=== PATIENT | female | born 1995 | race African-American/Black ===

== ENCOUNTER 2016-09-01 13:58 | Emergency (ER) ==
[2016-09-01 14:12] VITALS: BP 132/75
[2016-09-01 14:24] LABS: URINE CULTURE PL NEEDED? NO; URINE SOURCE CLEAN CATCH
[2016-09-01 14:30] LABS: BILIRUBIN URINE NEGATIVE (NEGATIVE); BLOOD URINE NEGATIVE (NEGATIVE); CLARITY CLEAR (CLEAR); COLOR YELLOW; GLUCOSE URINE NEGATIVE (NEGATIVE); LEUKOCYTES URINE 1+ (NEGATIVE); NITRITE URINE NEGATIVE (NEGATIVE); PROTEIN URINE 1+(30 mg/dL) mg/dL (NEGATIVE); UROBILINOGEN URINE 1+(1 mg/dL)
[2016-09-01 14:43] LABS: URINE EPITHELIAL CELLS <10 /HPF (<10); URINE RBC <10 /HPF (<10)
[2016-09-01 15:51] LABS: MANUAL DIFF NEEDED? NO
--- NOTE | 2016-09-01 15:56 | PROVIDER DOCUMENTATION ---
HPI-Female /OB/Breast - General Chief Complaint: Flank Pain Stated Complaint: FLANK PAIN Time Seen by Provider: 09/01/16 15:44 Source: reports: patient Allergies/Adverse Reactions: Patient Allergies Allergy/AdvReac Type Severity Reaction Status Date / Time Penicillins Allergy Severe SWELLING Verified 03/18/16 18:10 Home Medications: Home Medication List Medication Instructions Recorded Confirmed Last Taken Type No Home Medications 03/18/16 03/18/16 Unknown History - History of Present Illness-Female /OB Nature of Presenting Problem: 20 yo AAF presents to ED with cc of R flank and abdominal pain. Pt has hx of kidney stones and says this feels comparable to kidney stone episodes. Pt denies any surgical intervention in the past for kidney stones. Pt denies fever and vomiting. Pt denies any toxic habits. Upon arrival to ED, pt is mildly distressed and appears nontoxic. Location of complaint: reports: right flank Radiation: reports: RLQ Severity in ED: reports: moderate, severe Onset/Duration: reports: last night Timing: reports: still present Context/Activities at Onset: reports: none Vaginal Symptoms: reports: no symptoms Vaginal Bleeding Amount: None Urinary Symptoms: reports: no symptoms Associated Symptoms: denies: vomiting Review of Systems - Adult - REVIEW OF SYSTEMS - ADULT Constitutional: reports: no symptoms reported. denies: chills, fever Eyes: reports: no symptoms reported. denies: blurred vision, double vision Ears, Nose, Mouth & Throat: reports: no symptoms reported. denies: ear pain, nose pain Cardiovascular: reports: no symptoms reported. denies: chest pain, palpitations Respiratory: reports: no symptoms reported. denies: cough, wheezing Gastrointestinal: reports: abdominal pain (R side, to flank) Genitourinary: reports: flank pain (R side) Musculoskeletal: reports: no symptoms reported. denies: back pain, muscle aches Integumentary: reports: no symptoms reported. denies: mole changes, nail changes Neurological: reports: no symptoms reported. denies: ataxia, loss of balance Psychiatric: reports: no symptoms reported. denies: anxiety, alcohol/drug dependence Endocrine: reports: no symptoms reported. denies: cold intolerance, heat intolerance Hematologic/Lymphatic: reports: no symptoms reported. denies: blood clots, low blood count Allergic/Immunologic: reports: no symptoms reported. denies: allergic reactions , eczema All Other Systems: Reviewed and Negative Past History - Adult - PAST MEDICAL HISTORY-ADULT Review of Records: reports: Old Records Reviewed, Nursing Assessment Review, Medications Reviewed Major Childhood Illnesses: reports: denies history Cardiovascular: reports: denies history Respiratory: reports: denies history Gastrointestinal: reports: denies history Obstetrical/Gynecological: reports: PID/STD Genitourinary: reports: denies history Musculoskeletal: reports: denies history Neurological: reports: denies history Endocrine/Immune: reports: denies history Other Conditions: reports: denies history - PRIOR SURGERIES/PROCEDURES Surgical/Procedure History: reports: tonsillectomy - PRIOR HOSPITALIZATIONS Prior Hospitalizations: reports: none - IMMUNIZATION STATUS Childhood Immunizations: See Nurse Assessment Flu Vaccine: See Nurse Assessment - FAMILY HISTORY Family History: reviewed, not pertinent Physical Exam-General - PHYSICAL EXAM-ADULT Initial Vital Signs Reviewed: Yes - CONSTITUTIONAL General Appearance: alert, mild distress - EYES Eyes: PERRL/EOMI, pink conjunctivae - HEAD, EARS, NOSE, MOUTH & THROAT HENMT: normocephalic/atraumatic, moist mucous membranes - NECK Neck: non-tender, full range of motion, supple - RESPIRATORY Respiratory: chest non-tender, lungs clear, normal breath sounds - CARDIOVASCULAR Cardiovascular: normal peripheral pulses, regular rate, rhythm - GASTROINTESTINAL (ABDOMEN) Abdominal Exam: tenderness (R side, abdomen to flank) - LYMPHATIC Lymphatic: no adenopathy - MUSCULOSKELETAL Back Exam: normal inspection, no vertebral tenderness Extremity: normal range of motion, non-tender, normal gait - SKIN Integumentary: normal color, normal turgor, warm/dry - NEUROLOGIC Neurologic: grossly normal, no motor/sensory deficits - PSYCHIATRIC Psych/Mental Status: normal mood/affect, normal thought content, normal thought process, oriented x 3 Progress - CT/MRI 1 CT Study: Renal Stone Impression: Abnormal (No evidence of hydronephrosis, nephrolithiasis, ureterolithiasis. Evidence for cholelithiasis.) CT Results: Cholelithiasis (per Dr. Montenegro, radiology) Departure - Departure Disposition: HOME 01 Condition: Stable Additional Instructions: Follow up with Urology as instructed. Return to ER if your symptoms worsen. Referrals: Ajit Alejandro MD [Primary Care Provider] - Attestation - Scribe Verification/Attestation Scribe:: Roberta Kennedy Acting as Scribe for:: Zakia Domínguez Scribe documention review:: This chart was documented by a scribe and accurately reflects the service the provider performed and the decisions made by the provider. - Physician/ WARNER Attestation Patient care was provided by Advanced Practice Provider:: No
[2016-09-01 16:00] LABS: BASO% 0.2 % (0.0-0.8); EOS# 0.06 X1000 (0.0-0.7); EOS% 0.7 % (0.0-10.0); HEMATOCRIT 34.6 % (37.0-47.0); IMM GRAN# 0.01 X1000 (0.0-0.04); IMM GRAN% 0.1 % (0.0-0.5); LYMPH# 1.28 X1000 (1.2-3.4); LYMPH% 15.4 % (20.5-51.1); MCH 24.7 PG (27-31); MCHC 31.8 g/dL (33-37); MCV 77.6 FL (81-99); MONO# 0.46 X1000 (0.11-0.59); MONO% 5.5 % (1.7-9.3); MPV 10.1 FL (7.4-10.4); NEUT% 78.1 % (42.2-75.2); PLT 279 X1000 (130-400); RBC 4.46 XMIL (4.2-5.4)
[2016-09-01] MEDS ORDERED: SEPTRA DS PO ONE (16:15)
[2016-09-01 16:16] LABS: AGAP 12; ALBUMIN 4.1 g/dL (3.5-5.0); ALKALINE PHOSPHATASE 75 U/L (32-104); AMYLASE 70 U/L (20-200); BUN 9 mg/dL (8-22); CALCIUM 9.7 mg/dL (8.8-10.2); CHLORIDE 101 mmol/L (98-107); COSMO 272; GOT 19 U/L (10-30); GPT 16 U/L (10-36); LIPASE 31 U/L (13-60); POTASSIUM 3.3 mmol/L (3.5-5.1); SODIUM 137 mmol/L (136-145); TCO2 25 mmol/L (25-35); TOTAL PROTEIN 7.9 g/dL (6.3-8.3)
[2016-09-01] MEDS ORDERED: KLOR-CON PO ONE (16:18)
[2016-09-01] MEDS ORDERED: CIPRO PO ONE (16:21)
--- NOTE | 2016-09-01 17:10 | Diag Imaging Result Document ---
PROCEDURE NAME: RENAL STONE SEARCH - 09/01/2016 UROGRAM WITHOUT CONTRAST: FINDINGS: There are numerous small gallstones in the gallbladder. There is no evidence of pericholecystic fluid. There is no evidence of hydronephrosis or nephrolithiasis. There are granulomata in the spleen. There is no evidence of ureterolithiasis. There is no evidence of appendicitis. No bowel obstruction is present. There is no evidence of free fluid. IMPRESSION: Cholelithiasis.
== END 2016-09-01 17:32 | disposition home or self-care (01) ==
LOC: P.ED 13:58
DX: K80.20 Calculus of gallbladder without cholecystitis without obstruction (principal); R10.9 Unspecified abdominal pain; R10.31 Right lower quadrant pain; R10.819 Abdominal tenderness, unspecified site; Z87.442 Personal history of urinary calculi
CPT/HCPCS: 74176; 80053; 81001; 81025; 82150; 83690; 85025